=== PATIENT | male | born 1990 | race Caucasian/White ===

== ENCOUNTER 2017-03-07 14:43 | Emergency (ER) | payer OTHER ==
--- NOTE | ~2017-03-07 | CR181 ---
[facility] A Service of [facility] RADIOLOGY TEXT RESULTS PATIENT: NORMAN GONZALEZ LOCATION: [place] : [birth year] UNIT #: [id number] AGE: [address]: Do Hernandez SEX: M ORDER DR: [id number] [facility] [address] [place], [place] [address] [id number] E MR#: [id number] Acc #: [id number] NAME: NORMAN GONZALEZ : 1990 SEX: M STUDY DATE/TIME: 03/07/2017 15:18 UNIT: [facility] ROOM: STUDY DESCRIPTION: CR Lumbar Spine 2 or 3 Views Attending Physician: Do Hernandez Pa-C Ordering Physician: Kehinde Ronquillo M.D. Primary Care Physician: Wolfgang Brock Jr., A.P.R.N. MEDICAL IMAGING REPORT This report is preliminary unless electronic signature is present EXAM Lumbar spine series HISTORY Lower back pain after falling earlier today. TECHNIQUE 3 views lumbar spine were obtained. COMPARISON STUDIES 03/13/2014. FINDINGS On the AP view, there is mild mid-lumbar dextroscoliosis that is unchanged. Alignment in the lateral projection is unremarkable. Disc space heights are preserved. No fractures or destructive bone lesions are seen. Posterior facets are intact. Increased stool is seen throughout the colon. IMPRESSION Mild mid-lumbar dextroscoliosis. Markedly increased stool throughout the colon. No acute bony abnormality is noted. Dictated by... Johnathon Gama M.D. THIS IS AN ELECTRONICALLY VERIFIED REPORT Johnathon Gama M.D. at 03/11/2017 2:26 PM RLF/pcl TD: 03/07/2017 22:43 [facility] A Service [facility] RADIOLOGY TEXT RESULTS PATIENT: NORMAN GONZALEZ LOCATION: [place] : [birth year] UNIT #: [id number] AGE: [address]: Do Hernandez SEX: M ORDER DR: JOB #: [id number] MEDICAL IMAGING REPORT Page 1 of 1 COPY
--- NOTE | ~2017-03-07 | CR243 ---
[facility] A Service of [facility] & [facility] RADIOLOGY TEXT RESULTS PATIENT: NORMAN GONZALEZ LOCATION: [facility] : [birth year] UNIT #: [id number] AGE: [address]: Do Hernandez SEX: M ORDER DR: [id number] [facility] [address] [place], [place] [address] [id number] E MR#: [id number] Acc #: [id number] NAME: NORMAN GONZALEZ : 1990 SEX: M STUDY DATE/TIME: 03/07/2017 15:17 UNIT: [facility] ROOM: STUDY DESCRIPTION: CR Thoracic Spine 3 Views Attending Physician: Do Hernandez Pa-C Ordering Physician: Kehinde Ronquillo M.D. Primary Care Physician: Wolfgang Brock Jr., A.P.R.N. MEDICAL IMAGING REPORT This report is preliminary unless electronic signature is present EXAM Thoracic spine 03/07 HISTORY Upper back pain after a fall today. FINDINGS AP and lateral examination of the dorsal segment shows normal mineralization and a satisfactory anatomical dorsal kyphosis. All body heights, interspaces, and posterior elements are normal anatomically without any indication of malignancy, trauma, unusual paraspinal soft tissue density mass, or congenital defect. IMPRESSION Normal thoracic spine. Dictated by... Johnathon Alarcon Jr., M.D. THIS IS AN ELECTRONICALLY VERIFIED REPORT Johnathon Alarcon Jr., M.D. at 03/10/2017 7:21 AM RLK/malou TD: 03/07/2017 22:48 JOB #: [id number] MEDICAL IMAGING REPORT Page 1 of 1 COPY
--- NOTE | ~2017-03-07 | CT71 ---
[facility] A Service of [facility] RADIOLOGY TEXT RESULTS PATIENT: NORMAN GONZALEZ LOCATION: [facility] : 92 UNIT #: [id number] AGE: [address]: Do Hernandez SEX: M ORDER DR: [id number] [place] [id number] [facility] [address] [facility] [address] [facility]. [place], [place] [address] [id number] E MR#: [id number] Acc #: [id number] NAME: NORMAN GONZALEZ : 1990 SEX: M STUDY DATE/TIME: 03/07/2017 15:40 UNIT: [facility] ROOM: STUDY DESCRIPTION: CT Head Wo Contrast Attending Physician: Do Hernandez Pa-C Ordering Physician: Ed Doctor [id number] [facility] Primary Care Physician: Wolfgang Brock Jr., A.P.R.N. MEDICAL IMAGING REPORT This report is preliminary unless electronic signature is present EXAM CT head without contrast, 03/07/17 HISTORY Patient fell down steps this afternoon, hitting the back of head, complaining of headache. TECHNIQUE Axial images were obtained without contrast. This CT exam was performed with one or more of the following radiation dose reduction techniques: automatic exposure control, adjustment of mA and/or kV according to patient size, and iterative reconstruction. TECHNIQUE Axial noncontrast images were obtained from the skull base to the vertex. This CT exam was performed with one or more of the following radiation dose reduction techniques: automatic exposure control, adjustment of mA and/or kV according to patient size, and iterative reconstruction. FINDINGS Ventricular size and configuration are normal. There is no evidence of acute infarct or hemorrhage. There are no extraaxial fluid collections. No mass lesion or mass effect is seen. There are no skull fractures. IMPRESSION Normal noncontrast head CT. Dictated by... [facility] A Service [facility] RADIOLOGY TEXT RESULTS PATIENT: NORMAN GONZALEZ LOCATION: [facility] : 92 UNIT #: [id number] AGE: [address]: Do Hernandez SEX: M ORDER DR: Johnathon Gama M.D. THIS IS AN ELECTRONICALLY VERIFIED REPORT Johnathon Gama M.D. at 03/27/2017 10:30 AM ELOY/arti TD: 03/07/2017 22:48 JOB #: [id number] MEDICAL IMAGING REPORT Page 1 of 1 COPY
[~2017-03-07 14:43] MED LIST: ADDERALL PO; ADDERALLXR PO; ALBUTEROL MININEB NEB; ALBUTEROL17 GM INH; AMITRYPTYLINE PO; BACTRIM DS TABL1 TA1 PO; BACTRIM DS TABL1 TA2 PO; BACTRIM DS TABL1 TAB PO; BENADRYL IV; BENADRYL PO; BENZTROPINE MESY1 MG PO; CELEXA PO; CELEXA20 MG PO; CHILD IBUP100 MG/51 PO; CIPRO PO; CITALOPRAM HBR40 MG PO; CLARITIN10 MG PO; CLEOCIN HCL300 M1 PO; CLONIDINE PO; CONCERTA; CONCERTA54 M1 PO; DEPAKOTE PO; DESYREL100 MG PO; DESYREL150 M1 PO; DIAZEPAM PO; DOXYCYCLINE HY100 M3 PO; DOXYCYCLINE PO; EPIPEN0.3 MG/0.1 IM; FLEXERIL PO; FLONASE 0.05% N16 G1; FLONASE16 GM; GEODAN; GEODAN PO; GEODON80 MG; GEODON80 MG PO; GUANFACINE HCL E1 MG PO; HALOPERIDOL2 MG PO; IBUPROFEN PO; IBUPROFEN600 MG PO; IBUPROFEN800 MG PO; INDERAL20 MG PO; INTUNIV PO; INTUNIV2 MG PO; INTUNIV3 MG PO; IPRATROPIUM0.2 MG/ML NEB; KEFLEX500 MG; KEFLEX500 MG PO; LITHIUM; LOTRIMIN 1% CR30 GM TOP; MOBIC PO; MOBIC15 MG PO; MOTRIN600 M1 PO; NEURONTIN300 MG PO; OMEPRAZOLE20 M1 PO; OMEPRAZOLE20 M2 PO; ORUDIS75 M1 PO; PHENERGAN PO; PHENERGAN W/CO120 ML PO; PROMETHAZINE HC25 MG PO; PROPRANOLOL HCL20 MG PO; PROPRANOLOL PO; PROZAC PO; PULMICORT200 MCG/AE; PULMICORT200 MCG/AE INH; Q-DRYL25 MG PO; QUETIAPINE FUM300 MG PO; RITALIN; RITALIN PO; SEROQUEL; SEROQUEL300 M1 PO; SEROQUEL400 MG PO; SINGULAIR; SINGULAIR PO; STRATTERA; SYMBICORT INH; TRAZODONE HCL300 MG PO; VICODIN 5/1 TAB 5/50 PO; VICODIN PO; VISTARIL PO; VOLTAREN50 MG PO; VOLTAREN75 MG PO; ZADITOR OP; ZITHROMAX PO; ZOFRANODT PO; ZYRTEC; ZYRTEC PO; ZYRTEC10 M1 PO; ZYRTEC10 M2 PO
== END 2017-03-07 16:20 | disposition home or self-care (01) ==
LOC: CED 14:43 → CFTX 14:43
DX: S39.012A Strain of muscle, fascia and tendon of lower back, initial encounter (principal); F20.9 Schizophrenia, unspecified; J45.909 Unspecified asthma, uncomplicated; Z79.899 Other long term (current) drug therapy; W18.39XA Other fall on same level, initial encounter; Y92.009 Unspecified place in unspecified non-institutional (private) residence as the place of occurrence of the external cause
CPT/HCPCS: 70450; 72072; 72100; 99284

== ENCOUNTER 2017-03-16 10:01 | Emergency (ER) | payer OTHER ==
[2017-03-16 11:33] LABS: URINE SOURCE CLEAN CATCH
[2017-03-16 11:38] LABS: URINE APPEARANCE CLEAR; URINE BILIRUBIN NEG (NEG); URINE BLOOD NEG (NEG); URINE COLOR DK YELLOW; URINE GLUCOSE NEG (NEG); URINE KETONE NEG (NEG); URINE LEUKOCYTE ESTERASE NEG (NEG); URINE NITRATE NEG (NEG); URINE PH 6.5 (5-8); URINE PROTEIN NEG (NEG); URINE SPECIFIC GRAVITY 1.022 (1.003-1.035)
[2017-03-16 11:44] LABS: BASOPHIL% 0.2 % (0-2.5); EOSINOPHIL# 0.1 X10e3 (0-0.7); EOSINOPHIL% 1.7 % (0.0-7.0); HEMOGLOBIN 13.9 gm/dL (13.0-16.0); LYMPHOCYTE# 0.8 X10e3 (1.0-3.5); LYMPHOCYTE% 13.3 % (17.0-45.0); MEAN CELL VOLUME 91.3 FL (83-96); MEAN CORPUSCULAR HEMOGLOBIN 30.2 PG (28-34); MEAN CORPUSCULAR HGB CONC 33.1 g/dL (30-36); MEAN PLATELET VOLUME 10.4 FL (6.5-11.5); MONOCYTE# 0.6 X10e3 (0-1.0); MONOCYTE% 9.1 % (3.0-12.0); NEUTROPHIL# 4.8 X10e3 (1.5-7.1); NEUTROPHIL% 75.7 % (40-75); PLATELET COUNT 135 X10e3 (140-420); WHITE BLOOD COUNT 6.3 X10e3 (4.0-10.5)
[2017-03-16 11:48] LABS: DIFF IND NO
[2017-03-16 12:02] LABS: CULTURE INDICATED? NO
[2017-03-16 12:15] LABS: CALCIUM SERUM 9.1 mg/dL (8.4-10.2); GLOM FILT RATE Estimated 104.9 mL/min (>60); POTASSIUM 4.6 mmol/L (3.5-5.1)
== END 2017-03-16 12:54 | disposition home or self-care (01) ==
LOC: CED 10:01
PROVIDERS: Physician Assistant Medical
DX: M54.9 Dorsalgia, unspecified (principal); K21.9 Gastro-esophageal reflux disease without esophagitis; F31.9 Bipolar disorder, unspecified; F20.9 Schizophrenia, unspecified; J45.909 Unspecified asthma, uncomplicated; M48.02 Spinal stenosis, cervical region; Z88.0 Allergy status to penicillin; W18.30XA Fall on same level, unspecified, initial encounter; Y92.009 Unspecified place in unspecified non-institutional (private) residence as the place of occurrence of the external cause
CPT/HCPCS: 80048; 81003; 85025; 99283

== ENCOUNTER 2017-03-23 08:56 | Emergency (ER) | payer OTHER | END 2017-03-23 10:35 | disposition home or self-care (01) | LOC: CED 08:56 | DX: H92.01 Otalgia, right ear (principal); Z77.22 Contact with and (suspected) exposure to environmental tobacco smoke (acute) (chronic) | CPT/HCPCS: 87651; 99283 ==

== ENCOUNTER 2017-04-12 11:44 | Emergency (ER) | payer OTHER ==
--- NOTE | ~2017-04-12 | CR20 ---
[facility] A Service of [facility] & [facility] RADIOLOGY TEXT RESULTS PATIENT: NORMAN GONZALEZ LOCATION: [facility] : [birth year] UNIT #: [id number] AGE: [address]: Grazyna Holloway APRN SEX: M ORDER DR: [id number] [facility] [address] [place], [place] [address] [id number] E MR#: [id number] Acc #: [id number] NAME: NORMAN GONZALEZ : 1990 SEX: M STUDY DATE/TIME: 04/12/2017 12:14 UNIT: [facility] ROOM: STUDY DESCRIPTION: CR Ankle Min 3 Views Lt Attending Physician: Grazyna Holloway A.P.R.N. Ordering Physician: Grazyna Holloway A.P.R.N. Primary Care Physician: Russ Morrow Jr..P.RKeli MEDICAL IMAGING REPORT This report is preliminary unless electronic signature is present EXAM Left ankle series, 04/12/2017. HISTORY 26-year-old male in the ED complaining of left foot and ankle pain after a fall today. TECHNIQUE Three-view left ankle series. FINDINGS The examination is negative. No fracture, dislocation or other acute osseous abnormality is demonstrated. IMPRESSION Negative left ankle. Dictated by... Fernando Shane M.D. THIS IS AN ELECTRONICALLY VERIFIED REPORT Fernando Shane M.D. at 04/13/2017 12:51 PM BRADEN/rosalie TD: 04/12/2017 22:46 JOB #: [id number] MEDICAL IMAGING REPORT Page 1 of 1 COPY
--- NOTE | ~2017-04-12 | CR126 ---
[facility] A Service of [facility] & [facility] RADIOLOGY TEXT RESULTS PATIENT: NORMAN GONZALEZ LOCATION: [place] : [birth year] UNIT #: [id number] AGE: [address]: Grazyna Holloway APRN SEX: M ORDER DR: [id number] [facility] [address] [place], [place] [address] [id number] E MR#: [id number] Acc #: [id number] NAME: NORMAN GONZALEZ : 1990 SEX: M STUDY DATE/TIME: 04/12/2017 12:15 UNIT: [facility] ROOM: STUDY DESCRIPTION: CR Foot Complete Min 3 View Lt Attending Physician: Grazyna Holloway A.P.R.N. Ordering Physician: Grazyna Holloway A.P.R.N. Primary Care Physician: Wolfgang Brock Jr. A.P.RKeli MEDICAL IMAGING REPORT This report is preliminary unless electronic signature is present EXAM Left foot series 04/12/2017 HISTORY 26-year-old male in the ED complaining of left foot and ankle pain after a fall today. TECHNIQUE 3-view left foot series. The examination is limited by suboptimal radiographic exposure. FINDINGS The examination is negative. No fracture, dislocation or other acute osseous abnormality. No change since 09/06/2016. IMPRESSION Negative left foot series. Dictated by... Fernando Shane M.D. THIS IS AN ELECTRONICALLY VERIFIED REPORT Fernando Shane M.D. at 04/13/2017 12:51 PM BRADEN/vivek TD: 04/12/2017 23:00 JOB #: [id number] MEDICAL IMAGING REPORT Page 1 of 1 COPY
== END 2017-04-12 13:47 | disposition home or self-care (01) ==
LOC: CED 11:44 → CFTX 11:44
DX: S93.402A Sprain of unspecified ligament of left ankle, initial encounter (principal); S93.602A Unspecified sprain of left foot, initial encounter; F79 Unspecified intellectual disabilities; F20.9 Schizophrenia, unspecified; Z88.0 Allergy status to penicillin; Z88.6 Allergy status to analgesic agent; W10.9XXA Fall (on) (from) unspecified stairs and steps, initial encounter; Y92.009 Unspecified place in unspecified non-institutional (private) residence as the place of occurrence of the external cause
CPT/HCPCS: 29540; 73610; 73630; 99283

== ENCOUNTER 2017-05-09 12:51 | Emergency (ER) | payer OTHER | END 2017-05-09 14:55 | disposition home or self-care (01) | LOC: CED 12:51 → CFTX 12:51 | DX: M54.2 Cervicalgia (principal); G89.29 Other chronic pain; F31.9 Bipolar disorder, unspecified; F20.9 Schizophrenia, unspecified; J45.909 Unspecified asthma, uncomplicated; Z88.0 Allergy status to penicillin | CPT/HCPCS: 99283 ==

== ENCOUNTER 2017-06-01 12:06 | Emergency (ER) | payer OTHER ==
[~2017-06-01] VITALS: Ht 182.9 cm; Wt 97.5 kg
--- NOTE | ~2017-06-01 | US85 ---
[facility] A Service of [facility] & [facility] RADIOLOGY TEXT RESULTS PATIENT: NORMAN GONZALEZ LOCATION: [facility] : [birth year] UNIT #: [id number] AGE: [address]: Ashly Nash SEX: M ORDER DR: [id number] [facility] [address] [place], [place] [address] [id number] E MR#: [id number] Acc #: [id number] NAME: NORMAN GONZALEZ : 1990 SEX: M STUDY DATE/TIME: 06/01/2017 13:01 UNIT: [facility] ROOM: STUDY DESCRIPTION: [employer] Attending Physician: Ashly Nash P.A.-C. Ordering Physician: Ashly Nash P.A.-C. Primary Care Physician: Wolfgang Brock Jr., A.P.R.N. MEDICAL IMAGING REPORT This report is preliminary unless electronic signature is present EXAM Left lower extremity venous duplex ultrasound 06/01/2017 HISTORY 26-year-old male with left lower extremity pain and swelling for 10 days. COMPARISON Left lower extremity venous ultrasound 02/06/2013. FINDINGS Real time braden-scale, color Doppler, and spectral Doppler analysis of the left lower extremity deep venous system demonstrates normal venous waveforms with normal compressibility and augmentation throughout. No evidence of left lower extremity deep venous thrombosis. IMPRESSION Negative for left lower extremity DVT. Dictated by... Kendell Aguilar M.D. THIS IS AN ELECTRONICALLY VERIFIED REPORT Kendell Aguilar M.D. at 06/02/2017 10:36 AM CINDY/dyllan TD: 06/02/2017 09:01 JOB #: [id number] MEDICAL IMAGING REPORT Page 1 of 1 COPY
== END 2017-06-01 14:25 | disposition home or self-care (01) ==
LOC: CFTX 12:06 → CED 12:06 → CFTX 13:20
DX: M79.662 Pain in left lower leg (principal); M79.89 Other specified soft tissue disorders; Z88.0 Allergy status to penicillin; Z88.8 Allergy status to other drugs, medicaments and biological substances
CPT/HCPCS: 29530; 93971; 99283

== ENCOUNTER 2017-06-13 16:43 | Emergency (ER) | payer OTHER ==
[~2017-06-13] VITALS: Ht 182.9 cm; Wt 97.5 kg
--- NOTE | ~2017-06-13 | CT101 ---
[facility] A Service of [facility] / [facility] RADIOLOGY TEXT RESULTS PATIENT: NORMAN GONZALEZ LOCATION: [place] : [birth year] UNIT #: [id number] AGE: [address]: Nabila Cristina SEX: M ORDER DR: [id number] [id number] [place], [place] [address] [id number] E MR#: [id number] Acc #: [id number] NAME: NORMAN GONZALEZ : 1990 SEX: M STUDY DATE/TIME: 06/13/2017 19:46 UNIT: [facility] ROOM: STUDY DESCRIPTION: CT Maxillofacial Area Wo Cont Attending Physician: Nabila Cristina Pa-C Ordering Physician: Oren Hurtado M.D. Primary Care Physician: Wolfgang Brock Jr., A.P.R.N. MEDICAL IMAGING REPORT This report is preliminary unless electronic signature is present EXAM CT scan of the facial bones without contrast HISTORY Fall with facial trauma and pain in nose today. TECHNIQUE Axial 2 mm images were obtained through the facial bones and coronal reconstructions were generated. This CT exam was performed with one or more of the following radiation dose reduction techniques: automatic exposure control, adjustment of mA and/or kV according to patient size, and iterative reconstruction. FINDINGS No nasal bone fracture is visible. The facial bones are normal. Sinuses are clear. IMPRESSION Normal study. No facial or nasal bone fracture visible. Dictated by... Jonathan Black M.D. THIS IS AN ELECTRONICALLY VERIFIED REPORT Jonathan Black M.D. at 06/14/2017 7:58 PM FEL/pcl TD: 06/14/2017 16:51 JOB #: [id number] [facility] A Service [facility] RADIOLOGY TEXT RESULTS PATIENT: NORMAN GONZALEZ LOCATION: [facility] : [birth year] UNIT #: [id number] AGE: [address]: Nabila Cristina SEX: M ORDER DR: MEDICAL IMAGING REPORT Page 1 of 1 COPY
== END 2017-06-13 20:15 | disposition home or self-care (01) ==
LOC: CED 16:43 → CFTX 16:43
DX: S00.83XA Contusion of other part of head, initial encounter (principal); F20.9 Schizophrenia, unspecified; J45.909 Unspecified asthma, uncomplicated; Z88.0 Allergy status to penicillin; Z88.8 Allergy status to other drugs, medicaments and biological substances; W18.09XA Striking against other object with subsequent fall, initial encounter; Y92.009 Unspecified place in unspecified non-institutional (private) residence as the place of occurrence of the external cause
CPT/HCPCS: 70486; 99283